=== PATIENT | male | born 1960 | race Caucasian/White ===

== ENCOUNTER 2017-05-14 12:50 | Outpatient (CLI) | payer BC ==
--- NOTE | 2017-05-14 15:19 | RAD ---
3 VIEWS LUMBAR SPINE: Date: 05/14/17 INDICATION: Lumbar radiculitis. FINDINGS: There are five lumbar-type vertebra. Vertebra body heights and disc spaces are preserved. There is mi ld to moderate disc negative disease at L3-4 and L4-5. Spinal alignment on the lateral projection is within normal limits. No acute fracture is evident. 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 POS: EDUARDO
--- NOTE | 2017-05-14 15:20 | RAD ---
3 VIEWS SI JOINTS: Date: 05/14/17 INDICATION: Lumbar radiculitis. FINDINGS: There is mild degenerative change of both SI joints. No acute fracture or subluxation is evident. Sac ral arch and symphysis pubis appears within normal limits. No periarticular erosive changes are evide nt. 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 POS: EDUARDO
== END 2017-05-14 12:51 | disposition home or self-care (01) ==
LOC: MADRAD 12:50
PROVIDERS: ATTEND General Practice
DX: M47.27 Other spondylosis with radiculopathy, lumbosacral region (principal)
CPT/HCPCS: 72100; 72202